=== PATIENT | male | born 1975 ===

== ENCOUNTER 2020-05-14 07:11 | Day surgery (SDC) | payer OTHER ==
[~2020-05-14] VITALS: Ht 170.2 cm; Wt 99.8 kg
[~2020-05-14 07:11] MED LIST: PREVACID30 M1 PO; STOOL SOFTENER100 MG PO
[2020-05-14 11:44] VITALS: BP 114/49
== END 2020-05-14 11:34 | DRG 355 ==
LOC: ORM 07:11
PROVIDERS: ATTEND Surgery
PROC: 0WUF4JZ Supplement Abdominal Wall with Synthetic Substitute, Percutaneous Endoscopic Approach (ICD-10-PCS; principal; 2020-05-14)
DX: K43.0 Incisional hernia with obstruction, without gangrene (principal); M62.08 Separation of muscle (nontraumatic), other site; Z20.822 Contact with and (suspected) exposure to COVID-19
CPT/HCPCS: C1781; J0131; J2710